=== PATIENT | male | born 1950 | race Caucasian/White ===

== ENCOUNTER → 2016-10-22 | Day surgery (SDC) | payer OTHER ==
[~2016-10-22] MED LIST: ALLO100T PO; ASPI81TA17 PO; CALC-137 PO; DEXAMETHASONE SOD PHOS 4 MG/ML VIAL ONE; EPINEPHrine HCL (1:1000) 1 MG/ML VIAL ONE; IMDU30TA PO; LACTATED RINGER'S 1000 ML INJ 1,000 ML ONE; LANTUS2P SC; LASI20TA PO; LISI10 PO; METO50 PO; MIDAZOLAM HCL 2 MG/2 ML VIAL ONE; MOXIFLOXACIN 0.5% OPHT SOLN 3 ML BTL ONE; NOVOLOGP2 SC; ONDANSETRON HCL 4 MG/2 ML VIAL IV PUSH ONE; PHENYLEPHRINE HCL 10% OPTH SOLN 5 ML BTL ONE; PLAV75TA PO; SODIUM CHLORIDE 0.9% INJ 10 ML ONE; TETRACAINE 0.5% OPTH SOLN 4 ML BTL ONE; TOBRAMYCIN/DEXAMETHASONE OPTH OINT 3.5 GM TUBE ONE; TRIAMCINOLONE ACETONIDE 40 MG/ML VIAL ONE; ceFAZolin INJ 1,000 MG VIAL ONE; prednisoLONE ACETATE 1% OPHT SUSP 5 ML BTL ONE
--- NOTE | 2016-10-27 11:20 | TN ---
cc: CHAPARRO LYONS MD Corrected Copy: 10/29/16 DATE OF SURGERY: 10/22/2016 DATE OF : 1950 PREOPERATIVE DIAGNOSIS: Diabetic retinopathy, nonclearing vitreous hemorrhage, right eye. POSTOPERATIVE DIAGNOSIS: Diabetic retinopathy, nonclearing vitreous hemorrhage, right eye. PROCEDURE Pars vitrectomy, endolaser, right eye. COMPLICATIONS None BLOOD LOSS Less than [address] Braov, general INDICATIONS FOR PROCEDURE This is a delightful patient who developed nonclearing vitreous hemorrhage of his right eye. The hemorrhage was nonclearing with any device and the patient elected for surgical correction. PROCEDURE NOTE After informed consent was obtained, the patient was brought to the operating room where general anesthesia was established. The right eye was prepped and draped in sterile fashion with Betadine in the conjunctival fornix. A three port pars plana vitrectomy was established with self-retaining infusion cannula. Core vitreous was evacuated and vitreous hemorrhage removed. Peripheral vitreous traction was relieved. Scleral depressive examination revealed no retinal holes, tears or detachments. Peripheral photocoagulation was completed. Intravitreal Kenalog was instilled. Trocars removed and sclerotomies closed. Subconjunctival injection of Ancef and dexamethasone were given. The eye was patched with Tobramycin ointment. The patient was brought to recovery room in stable condition and will continue to follow up with [facility] for his postoperative care. MD CRISTIANO Chong/ROMULO /7:03 PM /11:58 AM
== END | disposition home or self-care (01) ==
LOC: ESDC 11:48
PROVIDERS: ATTEND Ophthalmology
DX: E11.319 Type 2 diabetes mellitus with unspecified diabetic retinopathy without macular edema (principal); H43.11 Vitreous hemorrhage, right eye; Z79.4 Long term (current) use of insulin
CPT/HCPCS: 00145; 67039; 82948; J0171; J0690; J1100; J2405; J3010; J3301; J7120; J2250